=== PATIENT | female | born 1970 | race Caucasian/White ===

== ENCOUNTER → 2017-09-19 07:07 | Outpatient (CLI) | payer BC, SELFPAY ==
[2017-09-19 07:23] LABS: Basophils % 0.7 % (0.1-2.0); Eosinophils # 0.1 K/mm3 (0.0-0.4); Eosinophils % 1.1 % (0.1-12.0); Hemoglobin 12.9 g/dL (12.2-16.2); Lymphocytes # 1.5 K/mm3 (0.7-4.5); Lymphocytes % 28.6 K/mm3 (10-50); Mean Corpuscular Hemoglobin 30.7 pg (27.0-31.2); Mean Corpuscular Volume 90.4 fl (81-99); Monocytes # 0.3 K/mm3 (0.1-1.0); Monocytes % 5.1 % (1.7-9.3); Neutrophils # 3.4 K/mm3 (1.8-7.8); Neutrophils % 64.6 % (37.0-80.0); Platelet Count 167 K/mm3 (142-424); Red Blood Count 4.21 M/mm3 (4.20-5.40); Red Cell Distribution Width 13.2 % (11.5-17.5); White Blood Count 5.2 K/mm3 (4.8-10.8)
--- NOTE | 2017-09-19 07:54 | MR_ITS ---
MR head/brain wo/w con HISTORY: Recurring constant headache with dizziness ITS.REASON: Headache ORDERING PHYSICIAN: Cameron Lugo PATIENT AGE: 47 years TECHNIQUE: Standard multiplanar multiecho sequences are performed without and with gadolinium enhancement contrast. FINDINGS: No midline shift, mass effect, intracranial hemorrhage, or hydrocephalus. No evidence of acute infarction. No enhancing lesions evident. The cerebellopontine angle, cerebellum, and brainstem are unremarkable. There is normal hodge-white matter differentiation there is a small subcortical T2 white matter hyperintensity in the left posterior frontal lobe as well as 2 foci in the right posterior frontal lobe within the subcortical white matter. These are nonspecific and do not demonstrate restricted diffusion or enhancement. The hippocampal gyri are unremarkable in the temporal horn and are symmetric. The pituitary optic chiasm and craniocervical junction have an unremarkable appearance. No sinus air-fluid level or mastoid effusion. IMPRESSION: 1. No acute intracranial finding. 2. There are a few subcortical T2 white matter hyperintensities noted in the posterior frontal region on both sides. These are nonspecific and could be related to ischemic gliotic change from microvascular disease versus sequela from migraine headache.
[2017-09-19 09:11] LABS: Alanine Aminotransferase 21 U/L (12-78); Albumin Level 3.5 gm/dL (3.4-5.0); Albumin/Globulin Ratio 1.1 (1.1-1.8); Alkaline Phosphatase 51 U/L (46-116); Anion Gap 11.1 mEq/L (5-15); Bilirubin,Total 0.3 mg/dL (0.2-1.0); Blood Urea Nitrogen 17 mg/dL (7-18); Calcium 9.3 mg/dL (8.5-10.1); Carbon Dioxide 28 mmol/L (21.0-32.0); Chloride 107 mmol/L (98-107); Creatinine,Serum 0.87 mg/dL (0.55-1.02); Estimated Glomerular Filt Rate 70 ml/min (>60); GFR (African American) 84 ML/MIN (>60); Globulin 3.2 gm/dl (1.3-3.2); Glucose 103 mg/dL (74-106); Sodium 142 mmol/L (136-145); Thyroid Stimulating Hormone 2.19 uIU/ml (0.358-3.740); Total Protein,Serum 6.7 gm/dL (6.4-8.2)
[2017-09-19 09:27] LABS: Aspartate Amino Transferase 22 U/L (15-37); Potassium 4.1 mmoL/L (3.5-5.1)
[2017-09-21 06:20] LABS: Vitamin B12 546 pg/mL (232-1245)
== END ==
PROVIDERS: Family Provider Family Medicine; PCP Family Medicine; Visit Provider Nurse Practitioner Family
DX: R51 Headache (principal); G47.10 Hypersomnia, unspecified; R06.83 Snoring; I10 Essential (primary) hypertension; R23.4 Changes in skin texture
CPT/HCPCS: 36415; 70553; 80053; 82607; 82746; 84443; 85025; 95806

== ENCOUNTER → 2018-01-23 14:39 | Outpatient (CLI) | payer BC, SELFPAY ==
[2018-01-23 15:12] LABS: Basophils # 0.1 K/mm3 (0-0.2); Basophils % 0.7 % (0.1-2.0); Eosinophils # 0.1 K/mm3 (0.0-0.4); Eosinophils % 0.8 % (0.1-12.0); Hemoglobin 13.7 g/dL (12.2-16.2); Lymphocytes # 1.5 K/mm3 (0.7-4.5); Lymphocytes % 21.4 K/mm3 (10-50); Mean Corpuscular HGB Conc 33.5 g/dL (31.8-35.4); Mean Corpuscular Volume 89.4 fl (81-99); Mean Platelet Volume 7.5 fl (7.4-10.4); Monocytes # 0.4 K/mm3 (0.1-1.0); Monocytes % 5.5 % (1.7-9.3); Neutrophils # 5.2 K/mm3 (1.8-7.8); Neutrophils % 71.6 % (37.0-80.0); Platelet Count 222 K/mm3 (142-424); Red Blood Count 4.58 M/mm3 (4.20-5.40); Red Cell Distribution Width 13.3 % (11.5-17.5); White Blood Count 7.2 K/mm3 (4.8-10.8)
[2018-01-23 15:13] LABS: Urine Pregnancy, HCG Qual. Negative (Negative)
== END ==
PROVIDERS: PCP Family Medicine; Visit Provider Otolaryngology
DX: Z01.818 Encounter for other preprocedural examination (principal); J32.0 Chronic maxillary sinusitis; J34.2 Deviated nasal septum
CPT/HCPCS: 36415; 81025; 85025; 93005

== ENCOUNTER → 2019-06-17 20:10 | Outpatient (CLI) | payer BC, SELFPAY | PROVIDERS: PCP Family Medicine; Visit Provider Nurse Practitioner Family | DX: G47.8 Other sleep disorders (principal); G47.00 Insomnia, unspecified; R51 Headache; I10 Essential (primary) hypertension; R06.83 Snoring | CPT/HCPCS: 95810 ==

== ENCOUNTER → 2019-09-25 11:26 | Outpatient (CLI) | payer BC, SELFPAY ==
--- NOTE | 2019-09-25 11:30 | XR_ITS ---
PROCEDURE: XR KNEE LT 3V CLINICAL INDICATION: LT KNEE PAIN COMPARISON: No exams were available for comparison FINDINGS: No fracture or dislocation. No lytic or blastic change. There is normal mineralization. Joint spaces are well preserved. There is minimal spurring along the posterior patella. Other findings:None. IMPRESSION: Minimal spurring along the posterior patella suggesting minimal osteoarthritic change otherwise negative Dictated by: Frank Camargo MD 09/25/2019 12:03 Electronically signed by Frank Camargo MD in [facility] 09/25/2019 12:03
--- NOTE | 2019-09-25 11:30 | XR_ITS ---
PROCEDURE: XR KNEE RT 3V CLINICAL INDICATION: RT KNEE PAIN COMPARISON: No exams were available for comparison FINDINGS: No fracture or dislocation. No lytic or blastic change. There is normal mineralization. There are minimal osteoarthritic changes with slight decrease in the joint space medially and minimal osteophytes along posterior patella. Other findings:None. IMPRESSION: Minimal osteoarthritic change otherwise negative Dictated by: Frank Camargo MD 09/25/2019 12:02 Electronically signed by Frank Camargo MD in [facility] 09/25/2019 12:02
== END ==
PROVIDERS: PCP Family Medicine; Visit Provider Family Medicine
DX: M25.562 Pain in left knee (principal); M25.561 Pain in right knee
CPT/HCPCS: 73562

== ENCOUNTER 2020-07-25 04:00 | Emergency (ER) | payer BC, SELFPAY ==
[2020-07-25 04:01] VITALS: BP 133/57; PULSE 67; RESP 14; TEMP 36.6; O2SAT 98; BMI 35.3
--- NOTE | 2020-07-25 04:20 | CT_ITS ---
PROCEDURE: CT ABDOMEN PELVIS W CON CLINICAL INDICATION: abd pain Lower abdominal pain, mid abdominal pain with nausea and vomiting COMPARISON: No exams were available for comparison TECHNIQUE: IV Contrast: 75ML Isovue 370 Oral Contrast None Axial images obtained with sagittal and coronal reformats. All CT scans at the facility use one or more dose reduction, viz: automated exposure control, ma/kV adjustment per patient size (including targeted exams where dose is matched to indication, i.e. head), or iterative reconstruction technique. FINDINGS: LOWER THORAX: No acute finding ABDOMEN & PELVIS: The liver, spleen, adrenal glands, and pancreas have an unremarkable appearance. There may be a small gallstone present There is mild right hydronephrosis and hydroureter secondary to a 4 mm right ureteral vesicle junction stone. Numerous pelvic phleboliths are present. Small amount of fluid is present along the inferior aspect of the right kidney. No intestinal obstruction or free air. The no evidence of appendicitis or diverticulitis. No acute bony findings. IMPRESSION: 4 mm right distal ureteral stone with mild right hydroureteronephrosis Possible cholelithiasis Dictated by: Frank Camargo MD 07/25/2020 06:46 Frank Camargo MD in [facility] 07/25/2020 06:46
[2020-07-25 04:27] LABS: Microscopic, Urine URINE MICROSCOPIC (MICROSCOPIC)
[2020-07-25 04:28] LABS: Appearance,Urine CLEAR (Clear); Bilirubin,Urine Negative (Negative); Blood, Urine 2+ (Negative); Color,Urine YELLOW (Yellow); Glucose,Urine (UA) Negative (Negative); Ketones,Urine Negative (Negative); Leukocyte Esterase,Urine Negative (Negative); Nitrate,Urine Negative (Negative); PH,Urine 7.5 (5.0-8.5); Protein,Urine Negative (Negative); Urobilinogen,Urine 0.2 EU/dl (0.2)
[2020-07-25 04:29] LABS: Basophils % 0.4 % (0.1-2.0); Eosinophils % 0.3 % (0.1-12.0); Hemoglobin 13.8 g/dL (12.2-16.2); Lymphocytes # 1.1 K/mm3 (0.7-4.5); Lymphocytes % 10.7 % (10-50); Mean Corpuscular HGB Conc 32.9 g/dL (31.8-35.4); Mean Corpuscular Hemoglobin 29.2 pg (27.0-31.2); Mean Corpuscular Volume 88.7 fl (81-99); Mean Platelet Volume 7.8 fl (7.4-10.4); Monocytes # 0.4 K/mm3 (0.1-1.0); Monocytes % 3.7 % (1.7-9.3); Neutrophils # 8.4 K/mm3 (1.8-7.8); Neutrophils % 84.9 % (37.0-80.0); Platelet Count 230 K/mm3 (142-424); Red Blood Count 4.74 M/mm3 (4.20-5.40); Red Cell Distribution Width 13.8 % (11.5-17.5)
[2020-07-25 04:36] LABS: Alanine Aminotransferase 42 U/L (12-78); Albumin Level 4.7 g/dl (3.5-5.0); Albumin/Globulin Ratio 1.4 (1.1-1.8); Alkaline Phosphatase 104 U/L (38-126); Amylase 84 U/L (30-110); Anion Gap 11.8 mEq/L (5-15); Aspartate Amino Transferase 41 U/L (14-36); Bilirubin,Total 0.4 mg/dl (0.2-1.3); Blood Urea Nitrogen 32 mg/dl (7-17); Calcium 10.1 mg/dl (8.4-10.2); Carbon Dioxide 29 mmol/L (22.0-30.0); Chloride 103 mmol/L (98-107); Creatinine Clearance Estimated 117 mL/min (50-200); Estimated Glomerular Filt Rate 66 ml/min (>60); GFR (African American) 80 ML/MIN (>60); Globulin 3.4 g/dL (1.3-3.2); Glucose 143 mg/dl (74-100); Lipase 137 U/L (23-300); Potassium 3.8 mmoL/L (3.5-5.1); Sodium 140 mmol/L (136-145); Total Protein,Serum 8.1 g/dl (6.3-8.2)
[2020-07-25 04:41] LABS: C-Reactive Protein 1.3 mg/L (0-4)
[2020-07-25 04:51] LABS: Lactic Acid 0.9 mmol/L (0.7-2.1)
[2020-07-25 04:57] LABS: Procalcitonin 0.076 ng/mL (0.0-2.0)
[2020-07-25 05:01] LABS: Troponin I < 0.01 ng/ml (0.00-0.034)
[2020-07-25 05:04] LABS: Erythrocyte Sedimentation Rate 25 mm/hr (0-20)
--- NOTE | 2020-07-25 05:26 | ECG_ITS ---
APPROVED REPORT Exam: Resting ECG HR:53 bpm ECG Measurements Heart Rate 53 AXES MD 160 P 61 QRSd 94 QRS 56 QT 424 T 48 QTc 397 Conclusion Sinus bradycardia Left atrial abnormality Borderline ECG Electronically signed by : Ramone Slade, 07/25/2020 16:29:06
[2020-07-25 05:30] VITALS: BP 123/57; PULSE 56; RESP 17; O2SAT 99
--- NOTE | 2020-07-25 05:34 | HMH.EDNVD ---
ED Disposition Clinical Impression: Renal colic on right side Disposition: Home, Self-Care Condition on Discharge: Good Instructions: DI for Kidney Stones Additional Instructions: fluids and see pcp for follow up and urology Referrals: Virgilio Schmidt MD [Primary Care Provider] - Medardo Ramirez MD [Staff Physician] - Forms: Work/School Release - Critical Care Critical Care Time: No Attestation: On 07/25/20, the high probability of a clinically significant, sudden or life threatening deterioration of the following system(s) required my full and direct attention, intervention and personal management. The time I documented below is in addition to time spent performing reported procedures but includes the following listed in this critical care notation. Medical Decision Making - Medical Records Medical records reviewed: Yes: I reviewed the patient's medical records. - Jamie Inquiry Pt receiving controlled substance: No Vital Signs: 07/25/20 04:01 07/25/20 05:30 07/25/20 06:18 Temperature 97.9 F Temperature Source Oral Pulse Rate [Right] 67 56 L 82 Respiratory Rate 14 17 15 Blood Pressure [Right Arm] 133/57 L 123/57 L 117/53 L Blood Pressure Mean [Right Arm] 82 79 74 Blood Pressure Source [Right Arm] Automatic Cuff Blood Pressure Position [Right Arm] Supine 02 Sat by Pulse Oximetry 98 99 97 Oxygen Delivery Method Room Air Room Air 07/25/20 06:30 Temperature Temperature Source Pulse Rate [Right] 64 Respiratory Rate Blood Pressure [Right Arm] 111/61 Blood Pressure Mean [Right Arm] 77 Blood Pressure Source [Right Arm] Blood Pressure Position [Right Arm] 02 Sat by Pulse Oximetry 97 Oxygen Delivery Method - Lab Data Lab results reviewed: Yes: I reviewed the patient's lab results. Lab Results 07/25/20 04:10: Urine Color Yellow, Urine Appearance Clear, Urine pH 7.5, Ur Specific [place] 1.020, Urine Protein Negative, Urine Glucose (UA) Negative, Urine Ketones Negative, Urine Blood 2+, Urine Nitrate Negative, Urine Bilirubin Negative, Urine Urobilinogen 0.2, Ur Leukocyte Esterase Negative, Urine RBC 5-10, Ur Squamous Epith Cells 3-5 07/25/20 04:13: Lactate 0.9 07/25/20 04:14: WBC 10.0, RBC 4.74, Hgb 13.8, Hct 42.0, MCV 88.7, MCH 29.2, MCHC 32.9, RDW 13.8, Plt Count 230, MPV 7.8, Neut % (Auto) 84.9 H, Lymph % (Auto) 10.7, [place] % (Auto) 3.7, Eos % (Auto) 0.3, Baso % (Auto) 0.4, Neut # (Auto) 8.4 H, Lymph # (Auto) 1.1, [place] # (Auto) 0.4, Eos # (Auto) 0.0, Baso # (Auto) 0.0, ESR 25 H 07/25/20 04:14: Sodium 140, Potassium 3.8, Chloride 103, Carbon Dioxide 29, Anion Gap 11.8, BUN 32 H, Creatinine 0.90, Estimated Creat Clear 117, Estimated GFR 66, Est GFR ( Amer) 80, Glucose 143 H, Calcium 10.1, Total Bilirubin 0.4, AST 41 H, ALT 42, Alkaline Phosphatase 104, C-Reactive Protein 1.3, Total Protein 8.1, Albumin 4.7, Globulin 3.4 H, Albumin/Globulin Ratio 1.4, Amylase 84, Lipase 137, Procalcitonin 0.076 07/25/20 04:14: Troponin I < 0.01 Result diagrams: 07/25/20 04:14 07/25/20 04:14 Orders (Tests/Meds): ED MEDICATIONS Generic Name Dose Route Start Last Admin Trade Name Freq PRN Reason Stop Dose Admin Sodium Chloride 1,000 mls @ 999 mls/hr 07/25/20 04:30 07/25/20 04:23 Sod Chlor 0.9% 1000ml Bag IV 07/25/20 05:30 999 mls/hr .Q1H1M JOHN Administration Sodium Chloride 8 ml 07/25/20 04:21 Sodium Chloride 0.9% 10ml Vial IV 08/24/20 04:20 NEEDED PRN dilute pepcid Tamsulosin HCl 0.4 mg 07/25/20 21:00 07/25/20 06:13 Tamsulosin 0.4mg Capsule PO 08/24/20 20:59 0.4 mg HS JOHN Administration Discontinued Medications Generic Name Dose Route Start Last Admin Trade Name Freq PRN Reason Stop Dose Admin Famotidine 20 mg 07/25/20 04:21 07/25/20 04:22 Famotidine 20mg/2ml Vial IV 07/25/20 04:22 20 mg ONCE ONE Administration Iopamidol 75 ml 07/25/20 05:06 07/25/20 05:07 Iopamidol-370 (76%);100ml Bottle IV 07/25/20 05:07 75 ml ONCE ONE
[2020-07-25 06:18] VITALS: BP 117/53; PULSE 82; RESP 15; O2SAT 97
[2020-07-25 06:30] VITALS: BP 111/61; PULSE 64; O2SAT 97
[2020-07-25 06:52] VITALS: BP 111/61; PULSE 61; RESP 16; TEMP 36.6; O2SAT 98
== END 2020-07-25 06:58 | disposition home or self-care (01) ==
PROVIDERS: Emergency Provider Emergency Medicine; PCP Family Medicine
DX: N23 Unspecified renal colic (principal); I10 Essential (primary) hypertension; F41.9 Anxiety disorder, unspecified; Z79.899 Other long term (current) drug therapy
CPT/HCPCS: 74177; 80053; 81001; 82150; 83605; 83690; 84145; 84484; 85025; 85651; 86140; 87040; 93005; 96365; 96375; 99284; J2405; Q9967

== ENCOUNTER → 2020-07-31 15:39 | Outpatient (CLI) | payer BC, SELFPAY ==
--- NOTE | 2020-07-31 15:44 | XR_ITS ---
PROCEDURE: XR KUB CLINICAL INDICATION: kidney stone COMPARISON: CT CT ABDOMEN PELVIS W CON from 07/25/2020 FINDINGS: Gas pattern-The bowel gas pattern is unremarkable. No obvious obstruction. Calcifications-No abnormal calcifications are evident. No obvious renal or ureteral calculi. Bones-No acute bony anomalies evident. IMPRESSION: No acute findings. Dictated by: Frank Camargo MD 07/31/2020 16:14 Frank Camargo MD in [place] 07/31/2020 16:14
== END ==
PROVIDERS: PCP Family Medicine; Visit Provider Urology
DX: N20.0 Calculus of kidney (principal)
CPT/HCPCS: 74018

== ENCOUNTER → 2020-08-25 13:52 | Outpatient (CLI) | payer BC, SELFPAY ==
--- NOTE | 2020-08-25 13:55 | XR_ITS ---
PROCEDURE: XR KUB CLINICAL INDICATION: ureteral stone COMPARISON: CT CT ABDOMEN PELVIS W CON from 07/25/2020 FINDINGS: No obvious renal or ureteral calculi evident. There are multiple pelvic calcifications consistent with phleboliths. Bowel gas pattern is nonspecific. No acute bony findings. IMPRESSION: No acute findings. Dictated by: Frank Camargo MD 08/25/2020 14:28 Frank Camargo MD in [facility] 08/25/2020 14:28
== END ==
PROVIDERS: PCP Family Medicine; Visit Provider Urology
DX: N20.1 Calculus of ureter (principal)
CPT/HCPCS: 74018

== ENCOUNTER → 2020-10-14 08:49 | Outpatient (CLI) | payer BC, SELFPAY ==
--- NOTE | 2020-10-14 08:51 | MM_ITS ---
PROCEDURE INFORMATION: Exam: MG Screening 3D Mammography Exam date and time: 10/14/2020 8:51 AM Age: 50 years old Clinical indication: Screening mammogram TECHNIQUE: Imaging protocol: Screening tomosynthesis and 2D mammography including computer-aided detection (CAD) when performed. COMPARISON: MG MM MOBILE DIGITAL MARGO SCREEN BILAT 07/03/2018 2:10 PM FINDINGS: MAMMOGRAPHY: Breast composition: The breast tissue is heterogeneously dense, which may obscure small masses. Mass: None. Architectural distortion: No new or suspicious architectural distortion. Calcifications: No new or suspicious calcifications are present Asymmetric density: No new or suspicious asymmetric density is present Skin thickening: None. Axillary adenopathy: None. IMPRESSION: No mammographic evidence of malignancy. Recommend annual screening mammography unless otherwise clinically indicated. ASSESSMENT: BI-RADS category 1: Negative
== END ==
PROVIDERS: PCP Family Medicine; Visit Provider Family Medicine
DX: Z12.31 Encounter for screening mammogram for malignant neoplasm of breast (principal)
CPT/HCPCS: 77063; 77067

== ENCOUNTER → 2020-11-03 10:35 | Outpatient (CLI) | payer BC, SELFPAY | PROVIDERS: Visit Provider Surgery | DX: Z01.812 Encounter for preprocedural laboratory examination (principal); Z20.822 Contact with and (suspected) exposure to COVID-19; Z12.11 Encounter for screening for malignant neoplasm of colon | CPT/HCPCS: U0003 ==

== ENCOUNTER 2020-11-05 06:17 | Day surgery (SDC) | payer BC, SELFPAY ==
[2020-11-02 13:16] VITALS: BMI 36.8
[2020-11-05] VITALS (8 sets, daily range): BP systolic 97–131; BP diastolic 55–81; PULSE 48–58; RESP 18; TEMP 36.2–36.4; O2SAT 95–100
--- NOTE | 2020-11-05 06:56 | HMH.ANESCL ---
[facility] Anesthesia Checklist - Patient Identification Patient Identification: Arm Band - Structural Data Admitted From: Home Planned Operative Procedure/s: Colonoscopy Consent for Planned Operative Procedure(s) Verified: Yes - NPO Status Verified Time NPO: 04:10 (Prep) - Additional verifications Anesthesia Reactions: No Hx Blood Transfusions: No Blood Transfusion Reaction: No - Airway Assessment C-Spine Mobility Assessed: Yes TMJ Mobility Assessed: Yes Dentition: Good Dentition - Neurological Assessment Level of Consciousness: Awake, Restless Hx Seizures: No Numbness or tingling in extremities: No - Anesthesia Plan Anesthesia Risk discussed: Yes Anesthesia Plan: Verified ASA Class: II Anesthesia Type: MAC [facility] History Medical History: Reports:: Anxiety, Hypertension, Migraine Denies:: Cancer, Diabetes Mellitus Type 1, Diabetes Mellitus Type 2, Internal Pacemaker, MRSA, Seizures *Have you ever received a pneumonia vaccine?: No *Have you received a flu vaccine this season?: No Other Medical History: Reports: Arthritis, Sinus Problems. Denies: Blood Transfusion Reaction Anesthesia experience/problems:: None Other Surgeries: Yes: No Previous Surgery, Colonoscopy, Sinus Surgery, Other. No: Pacemaker Amputation: No Fractures: No - *Social History Last grade of school completed: High school graduate Smoking Status: Never smoker Alcohol Intake: never Alcohol Intake Frequency:: other Substance Use Type: denies use *Occupational Status:: employed Housing: house Household Members: spouse *Travel in the last 8 weeks: None - Psychiatric History Pschychiatric History:: Reports:: Anxiety Family Hx:: Cancer
--- NOTE | 2020-11-05 07:59 | HMH.SCOPE ---
- Procedure: Date: 11/05/20 Patient Date of :: 1970 Procedure Performed:: Colonoscopy with polypectomy by means other than snare Indications:: Screening Performing Provider:: Elder Das MD Referring Provider:: . Sedation:: Monitored anesthesia care Procedure:: After informed consent was obtained the patient was taken to the endoscopy suite. Sedation ensued after the patient was transferred to the left lateral decubitus position. Pulse, blood pressure, and oxygen saturation were monitored throughout the procedure. Digital rectal exam revealed no significant abnormality. The colonoscope was placed in position. The entire colon was evaluated. The colonoscope was carefully removed and the patient was transferred to recovery in stable condition. Please see findings and specimens below for detail. Findings:: Bowel preparation fair Hemorrhoidal tags Moderate spasticity and tortuosity 6 mm lobulated cecal polyp Specimens:: 6 mm lobulated cecal polyp Recommendations:: Timing of repeat colonoscopy is pending pathology but will likely be between 3-5 years. Complications:: No immediate Estimated blood obtained (mL): 1
== END 2020-11-05 08:52 | disposition home or self-care (01) ==
LOC: OUTP 06:18
PROVIDERS: PCP Family Medicine; Visit Provider Surgery
PROC: 0DJD8ZZ Inspection of Lower Intestinal Tract, Via Natural or Artificial Opening Endoscopic (ICD-10-PCS; CPT 45380; principal; 2020-11-05 07:30)
DX: Z12.11 Encounter for screening for malignant neoplasm of colon (principal); K64.9 Unspecified hemorrhoids; K63.5 Polyp of colon; K56.2 Volvulus; I10 Essential (primary) hypertension; G43.909 Migraine, unspecified, not intractable, without status migrainosus; F41.9 Anxiety disorder, unspecified; M19.90 Unspecified osteoarthritis, unspecified site; Z80.9 Family history of malignant neoplasm, unspecified; Z79.899 Other long term (current) drug therapy
CPT/HCPCS: 45380

== ENCOUNTER → 2021-07-12 10:32 | Outpatient (CLI) | payer BC, SELFPAY ==
--- NOTE | 2021-07-12 10:47 | XR_ITS ---
FINAL REPORT CLINICAL HISTORY: PAIN IN LEFT FOOT FINDINGS: LEFT FOOT: Three views of the left foot were obtained. There is no acute fracture or dislocation. There is mild degenerative change. There are small calcaneal spurs. There is no acute soft tissue abnormality. IMPRESSION: No acute bony abnormality. Reviewed, Interpreted and Dictated by Anjel Li III, MD Transcribed by SHREYAS Godfrey Authenticated by Anjel Li III, MD on 07/12/2021 11:54:54 AM [facility]
--- NOTE | 2021-07-12 10:47 | XR_ITS ---
FINAL REPORT CLINICAL HISTORY: PAIN IN RIGHT FOOT FINDINGS: RIGHT FOOT: Three views of the right foot were obtained. There is no acute fracture or dislocation. There is mild degenerative change. There are small calcaneal spurs. There is no acute soft tissue abnormality. IMPRESSION: No acute bony abnormality. Reviewed, Interpreted and Dictated by Anjel Li III, MD Transcribed by SHREYAS Godfrey Authenticated by Anjel Li III, MD on 07/12/2021 12:12:56 PM [facility]
== END ==
PROVIDERS: PCP Family Medicine; Visit Provider Family Medicine
DX: M79.672 Pain in left foot (principal); M79.671 Pain in right foot
CPT/HCPCS: 73630

== ENCOUNTER → 2021-11-16 14:59 | Outpatient (CLI) | payer BC, SELFPAY ==
--- NOTE | 2021-11-16 14:59 | MM_ITS ---
PROCEDURE INFORMATION: Exam: MG Bilateral Screening 3D Mammography Exam date and time: 11/16/2021 3:01 PM Age: 51 years old Clinical indication: Screening examination TECHNIQUE: Imaging protocol: Bilateral Screening tomosynthesis and 2D mammography including computer-aided detection (CAD) when performed. COMPARISON: 1. MG MM DIG SCREENING MAMM BI W/CAD 10/14/2020 8:58 AM 2. MG MM MOBILE DIGITAL MARGO SCREEN BILAT 07/03/2018 2:10 PM FINDINGS: MAMMOGRAPHY: Breast composition: There are scattered areas of fibroglandular density. Mass: None. Architectural distortion: None. Calcifications: Cluster calcifications in the posterior third of the right 9 o'clock axis may reflect benign calcium within the wall of a small oil cyst. Asymmetric density: None. Skin thickening: None. Axillary adenopathy: None. IMPRESSION: Patient to be recalled for spot magnification views of the right breast in the CC and MLO projections for further evaluation of right breast calcifications. ASSESSMENT: BI-RADS Category 0: Incomplete- Need Additional Imaging Evaluation and/or Prior Mammograms for Comparison
== END ==
PROVIDERS: PCP Family Medicine; Visit Provider Family Medicine
DX: Z12.31 Encounter for screening mammogram for malignant neoplasm of breast (principal)
CPT/HCPCS: 77063; 77067

== ENCOUNTER → 2021-12-01 13:20 | Outpatient (CLI) | payer BC, SELFPAY ==
--- NOTE | 2021-12-01 13:20 | MM_ITS ---
PROCEDURE INFORMATION: Exam: MG Right Diagnostic Breast Tomosynthesis Exam date and time: 12/01/2021 1:16 PM Age: 51 years old Clinical indication: Callback for additional assessment of calcifications in the posterior right 9 o'clock breast identified on screening mammogram 11/16/2021 the TECHNIQUE: Imaging protocol: Right Diagnostic tomosynthesis and 2D mammography including computer-aided detection (CAD) when performed. Unilateral or bilateral exam. COMPARISON: 1. MG MM DIG SCREENING MAMM BI W/CAD 11/16/2021 3:01 PM 2. MG MM DIG SCREENING MAMM BI W/CAD 10/14/2020 8:58 AM 3. MG MM MOBILE DIGITAL MARGO SCREEN BILAT 07/03/2018 2:10 PM FINDINGS: MAMMOGRAPHY: There is a new cluster of calcifications spanning approximately 4 mm in the upper outer posterior right breast. Morphologically, these have features suggestive of developing fat necrosis or possibly highly meeting fibroadenoma. No morphologically suspicious linear or branching forms have developed. No associated architectural distortion or mass is present. IMPRESSION: Probably benign. Short-term follow-up right diagnostic mammogram in 6 months is recommended to assure continued benign features of a cluster of calcifications in the right upper outer posterior breast. These currently demonstrate features highly suggestive of a benign etiology such as fat necrosis ASSESSMENT: BI-RADS category 3: Probably benign
== END ==
PROVIDERS: PCP Family Medicine; Visit Provider Nurse Practitioner
DX: R92.8 Other abnormal and inconclusive findings on diagnostic imaging of breast (principal)
CPT/HCPCS: 77061; 77065; G0279

== ENCOUNTER → 2022-01-05 06:39 | Outpatient (CLI) | payer BC, SELFPAY ==
[2022-01-05 21:04] LABS: Adenovirus,PCR Not Detected (NotDetected); Bordetella Pertussis Not Detected (NotDetected); Coronavirus 229E Not Detected (NotDetected); Coronavirus NL63 Not Detected (NotDetected); Coronavirus OC43 Not Detected (NotDetected); Coronovirus HKU1,PCR Not Detected (NotDetected); Human Metapneumovirus Not Detected (NotDetected); Influenza A, PCR Not Detected (NotDetected); Influenza AH1, 2009 Not Detected (NotDetected); Influenza AH1, PCR Not Detected (NotDetected); Influenza AH3,PCR Not Detected (NotDetected); Influenza B, PCR Not Detected (NotDetected); Parainfluenza 1, PCR Not Detected (NotDetected); Parainfluenza 2, PCR Not Detected (NotDetected); Parainfluenza 3, PCR Not Detected (NotDetected); Parainfluenza 4, PCR Not Detected (NotDetected); Respiratory Syncytial Virus Not Detected (NotDetected); Rhinovirus/Enterovirus Not Detected (NotDetected)
[2022-01-05 23:22] LABS: Chlamydophila Pneumoniae, PCR Not Detected (NotDetected); Mycoplasma Pneumoniae, PCR Not Detected (NotDetected)
[2022-01-05 23:23] LABS: Coronavirus 19, PCR Detected (NotDetected)
== END ==
PROVIDERS: PCP Family Medicine; Visit Provider Family Medicine
DX: U07.1 COVID-19 (principal); J06.9 Acute upper respiratory infection, unspecified
CPT/HCPCS: 87581; 87632; 87798; C9803; U0003; U0005

== ENCOUNTER → 2022-05-25 15:44 | Outpatient (CLI) | payer BC, SELFPAY ==
--- NOTE | 2022-05-25 15:51 | XR_ITS ---
FINAL REPORT CLINICAL HISTORY: cough x2 months FINDINGS: TWO-VIEW CHEST The heart size is normal. The mediastinum is normal. There is a right upper lobe opacity consistent with pneumonia. There is no pneumothorax. IMPRESSION: Right upper lobe pneumonia. Reviewed, Interpreted and Dictated by Anjel Li III, MD Transcribed by Miriam Martinez Authenticated and [facility]
[2022-05-25 19:38] LABS: Basophils # 0.1 K/mm3 (0-0.2); Basophils % 0.7 % (0.1-2.0); Eosinophils # 0.1 K/mm3 (0.0-0.4); Eosinophils % 1.2 % (0.1-12.0); Hematocrit 35.8 % (37.0-47.0); Hemoglobin 11.4 g/dL (12.2-16.2); Lymphocytes # 1.6 K/mm3 (0.7-4.5); Lymphocytes % 19.8 % (10-50); Mean Corpuscular Hemoglobin 28.5 pg (27.0-31.2); Mean Corpuscular Volume 89.1 fl (81-99); Mean Platelet Volume 8.9 fl (7.4-10.4); Monocytes # 0.4 K/mm3 (0.1-1.0); Monocytes % 5.3 % (1.7-9.3); Neutrophils # 6.1 K/mm3 (1.8-7.8); Platelet Count 368 K/mm3 (142-424); Red Blood Count 4.02 M/mm3 (4.20-5.40); Red Cell Distribution Width 14.1 % (11.5-17.5); White Blood Count 8.3 K/mm3 (4.8-10.8)
[2022-05-25 19:51] LABS: Anion Gap 12.1 mEq/L (5-15); Blood Urea Nitrogen 24 mg/dl (7-17); Calcium 9.2 mg/dl (8.4-10.2); Carbon Dioxide 26 mmol/L (22.0-30.0); Chloride 105 mmol/L (98-107); Chol/HDL Ratio 4.6 (1-3.5); Cholesterol 172 mg/dl (140-200); Estimated Glomerular Filt Rate 75 ml/min (>60); GFR (African American) 91 ML/MIN (>60); Glucose 89 mg/dl (74-100); HDL Cholesterol 37 mg/dl (40-60); Potassium 4.1 mmoL/L (3.5-5.1); Sodium 139 mmol/L (136-145); Triglycerides 98 mg/dl (30-150); VLDL Cholesterol 20 mg/dL (0-40)
[2022-05-25 20:00] LABS: Hemoglobin A1C 5.4 % (4.0-6.0)
[2022-05-25 20:01] LABS: Direct LDL Cholesterol 97.88 mg/dL (100-129)
[2022-05-25 20:18] LABS: Creatinine,Urine Random 122 mg/dL (Not Estab.)
[2022-05-25 20:31] LABS: Microalbumin < 6.000 mg/L (0-16.7)
== END ==
PROVIDERS: PCP Family Medicine; Visit Provider Family Medicine
DX: R05.9 Cough, unspecified (principal); I10 Essential (primary) hypertension; R73.01 Impaired fasting glucose
CPT/HCPCS: 71046; 80048; 80061; 82043; 82570; 83036; 85025

== ENCOUNTER → 2022-06-07 13:44 | Outpatient (CLI) | payer BC, SELFPAY ==
--- NOTE | 2022-06-07 13:48 | MM_ITS ---
PROCEDURE INFORMATION: Exam: MG Right Diagnostic Breast Tomosynthesis Exam date and time: 06/07/2022 1:55 PM Age: 52 years old Clinical indication: Short-term radiographic follow-up for right breast calcifications TECHNIQUE: Imaging protocol: Right Diagnostic tomosynthesis and 2D mammography including computer-aided detection (CAD) when performed. Unilateral or bilateral exam. COMPARISON: 1. MG MM DIG MAMM DX UNILAT RT CAD 12/01/2021 1:16 PM 2. MG MM DIG SCREENING MAMM BI W/CAD 11/16/2021 3:01 PM FINDINGS: MAMMOGRAPHY: The breast tissue is composed of scattered areas of fibroglandular density. There is no stellate mass, architectural distortion or suspicious microcalcifications to suggest malignancy. Magnification views of the posterior right breast demonstrate benign dystrophic calcifications. No skin thickening or axillary adenopathy. IMPRESSION: No mammographic evidence of malignancy. Benign calcifications in the right breast.Annual bilateral mammographic screening is recommended in 6 months unless otherwise clinically indicated. ASSESSMENT: BI-RADS Category 2: Benign
--- NOTE | 2022-06-07 13:48 | XR_ITS ---
FINAL REPORT CLINICAL HISTORY: Follow-up pneumonia. COMPARISON: 05/25/2022 FINDINGS: TWO-VIEW CHEST Two views of the chest were obtained. The heart size and pulmonary vascularity are within normal limits. The mediastinum is normal. Previously visualized opacities in the right upper lobe have resolved. There is no pneumothorax. The bony thorax is intact. IMPRESSION: Resolved right upper lobe density, no acute findings. Reviewed, Interpreted and Dictated by Dallin Pereira MD Transcribed by Shilpa Sanchez Authenticated and [facility]
== END ==
PROVIDERS: PCP Family Medicine; Visit Provider Nurse Practitioner
DX: R93.89 Abnormal findings on diagnostic imaging of other specified body structures (principal)
CPT/HCPCS: 71046; 77061; 77065; G0279

== ENCOUNTER → 2022-12-06 09:42 | Outpatient (CLI) | payer BC, SELFPAY ==
--- NOTE | 2022-12-06 09:42 | MM_ITS ---
PROCEDURE INFORMATION: Exam: MG Bilateral Screening 3D Mammography Exam date and time: 12/06/2022 9:58 AM Age: 52 years old Clinical indication: Screening examination; Family history of breast cancer in grandmother TECHNIQUE: Imaging protocol: Bilateral Screening tomosynthesis and 2D mammography including computer-aided detection (CAD) when performed. COMPARISON: 1. MG MM DIG MAMM DX UNILAT RT CAD 06/07/2022 1:55 PM 2. MG MM DIG MAMM DX UNILAT RT CAD 12/01/2021 1:16 PM FINDINGS: MAMMOGRAPHY: Breast composition: There are scattered areas of fibroglandular density. Mass: None. Architectural distortion: None. Calcifications: No suspicious calcifications. Asymmetric density: None. Skin thickening: None. Axillary adenopathy: None. IMPRESSION: No mammographic evidence of malignancy. Annual screening is recommended unless otherwise clinically indicated. ASSESSMENT: BI-RADS Category 1: Negative
== END ==
PROVIDERS: PCP Family Medicine; Visit Provider Nurse Practitioner
DX: Z12.31 Encounter for screening mammogram for malignant neoplasm of breast (principal)
CPT/HCPCS: 77063; 77067

== ENCOUNTER → 2023-02-14 23:45 | Outpatient (CLI) | payer BC, SELFPAY ==
[2023-02-14 19:36] LABS: Alanine Aminotransferase 45 U/L (12-78); Albumin Level 4.5 g/dl (3.5-5.0); Albumin/Globulin Ratio 1.3 (1.1-1.8); Alkaline Phosphatase 145 U/L (38-126); Anion Gap 13.1 mEq/L (5-15); Aspartate Amino Transferase 44 U/L (14-36); Bilirubin,Total 0.4 mg/dl (0.2-1.3); Blood Urea Nitrogen 28 mg/dl (7-17); Calcium 9.5 mg/dl (8.4-10.2); Carbon Dioxide 28 mmol/L (22.0-30.0); Chloride 102 mmol/L (98-107); Estimated Glomerular Filt Rate 65 ml/min (>60); GFR (African American) 79 ML/MIN (>60); Globulin 3.6 g/dL (1.3-3.2); Glucose 101 mg/dl (74-100); Potassium 4.1 mmoL/L (3.5-5.1); Sodium 139 mmol/L (136-145); Total Protein,Serum 8.1 g/dl (6.3-8.2); Uric Acid 4.4 mg/dl (2.5-6.2)
[2023-02-14 20:23] LABS: Erythrocyte Sedimentation Rate 25 mm/hr (0-30)
== END ==
PROVIDERS: PCP Family Medicine; Visit Provider Family Medicine
DX: I10 Essential (primary) hypertension (principal); G43.909 Migraine, unspecified, not intractable, without status migrainosus; M79.673 Pain in unspecified foot
CPT/HCPCS: 80053; 84550; 85651

== ENCOUNTER → 2023-04-04 14:01 | Outpatient (CLI) | payer BC, SELFPAY ==
[2023-04-04 19:10] LABS: Uric Acid 3.8 mg/dl (2.5-6.2)
[2023-04-04 19:56] LABS: Erythrocyte Sedimentation Rate 77 mm/hr (0-30)
[2023-04-06 09:12] LABS: RA Latex Turbid. <10.0 IU/mL (<14.0)
[2023-04-10 08:17] LABS: Antinuclear Antibodies, IFA Negative (.)
[2023-04-10 21:59] LABS: Antinuclear Antibodies (ANA) NEGATIVE
== END ==
PROVIDERS: PCP Family Medicine; Visit Provider Family Medicine
DX: M79.672 Pain in left foot (principal); N20.0 Calculus of kidney
CPT/HCPCS: 84550; 85651; 86038; 86225; 86235; 86431

== ENCOUNTER 2023-11-21 11:22 | Outpatient (CLI) | payer BC, SELFPAY ==
[2023-11-21 19:05] LABS: Alanine Aminotransferase 41 U/L (12-78); Albumin Level 3.8 g/dl (3.5-5.0); Albumin/Globulin Ratio 1.4 (1.1-1.8); Alkaline Phosphatase 101 U/L (38-126); Anion Gap 8.2 mEq/L (5-15); Aspartate Amino Transferase 40 U/L (14-36); Bilirubin,Total 0.3 mg/dl (0.2-1.3); Blood Urea Nitrogen 15 mg/dl (7-17); Calcium 9.3 mg/dl (8.4-10.2); Carbon Dioxide 29 mmol/L (22.0-30.0); Chloride 108 mmol/L (98-107); Estimated Glomerular Filt Rate 75 ml/min (>60); GFR (African American) 91 ML/MIN (>60); Globulin 2.8 g/dL (1.3-3.2); Glucose 108 mg/dl (74-100); Potassium 4.2 mmoL/L (3.5-5.1); Sodium 141 mmol/L (136-145); Total Protein,Serum 6.6 g/dl (6.3-8.2)
== END 2023-11-21 23:59 | disposition home or self-care (01) ==
LOC: LAB.DROPOF 11-22 11:02
PROVIDERS: PCP Family Medicine; Visit Provider Family Medicine
DX: I10 Essential (primary) hypertension (principal)
CPT/HCPCS: 80053

== ENCOUNTER 2023-11-30 10:48 | Outpatient (CLI) | payer BC, SELFPAY ==
--- NOTE | 2023-11-30 10:49 | MM_ITS ---
PROCEDURE INFORMATION: Exam: MG Bilateral Screening 3D Mammography Exam date and time: 11/30/2023 10:33 AM Age: 53 years old Clinical indication: Screening examination TECHNIQUE: Imaging protocol: Bilateral Screening tomosynthesis and 2D mammography including computer-aided detection (CAD) when performed. COMPARISON: 1. MG MM DIG SCREENING MAMM BI W/CAD 12/06/2022 9:58 AM 2. MG MM DIG MAMM DX UNILAT RT CAD 06/07/2022 1:55 PM FINDINGS: MAMMOGRAPHY: Breast composition: There are scattered areas of fibroglandular density. Mass: None. Architectural distortion: None. Calcifications: No suspicious calcifications. Asymmetric density: None. Skin thickening: None. Axillary adenopathy: None. IMPRESSION: No mammographic evidence of malignancy. Annual screening is recommended unless otherwise clinically indicated. ASSESSMENT: BI-RADS Category 1: Negative
== END 2023-11-30 23:59 | disposition home or self-care (01) ==
LOC: RAD 10:49
PROVIDERS: PCP Family Medicine; Visit Provider Family Medicine
DX: Z12.31 Encounter for screening mammogram for malignant neoplasm of breast (principal); N60.19 Diffuse cystic mastopathy of unspecified breast
CPT/HCPCS: 77063; 77067

== ENCOUNTER 2024-01-02 16:13 | Outpatient (CLI) | payer BC, SELFPAY ==
[2024-01-02 20:00] LABS: Thyroid Stimulating Hormone 1.19 uIU/mL (0.465-4.68)
== END 2024-01-02 23:59 | disposition home or self-care (01) ==
LOC: LAB.DROPOF 01-03 16:14
PROVIDERS: PCP Family Medicine; Visit Provider Family Medicine
DX: F41.1 Generalized anxiety disorder (principal)
CPT/HCPCS: 84443

== ENCOUNTER 2024-07-30 14:30 | Outpatient (CLI) | payer BC, SELFPAY ==
[2024-07-30 21:35] LABS: Anion Gap 10.2 mEq/L (5-15); Blood Urea Nitrogen 23 mg/dl (7-17); Calcium 9.5 mg/dl (8.4-10.2); Carbon Dioxide 27 mmol/L (22.0-30.0); Chloride 104 mmol/L (98-107); Estimated Glomerular Filt Rate 87 ml/min (>60); GFR (African American) 106 ML/MIN (>60); Glucose 93 mg/dl (74-100); Potassium 4.2 mmoL/L (3.5-5.1); Sodium 137 mmol/L (136-145); Uric Acid 4.4 mg/dl (2.5-6.2)
== END 2024-07-30 23:59 | disposition home or self-care (01) ==
LOC: LAB.DROPOF 07-31 08:55
PROVIDERS: PCP Family Medicine; Visit Provider Family Medicine
DX: M79.671 Pain in right foot (principal); M79.672 Pain in left foot; I10 Essential (primary) hypertension
CPT/HCPCS: 80048; 84550

== ENCOUNTER 2024-11-26 13:00 | Outpatient (CLI) | payer BC, SELFPAY ==
--- OUTSIDE RECORDS SUMMARY | 2024-10-15 09:15 | XMS_ITS | Encounter Summary ---
Author Organization [place] [address] Care Team Providers Care Investment Accounting Clerk Name Role Phone Virgilio Schmidt MD Primary Care Provider [phone] Reason for Visit * Reason Comments Foot Pain right foot. A lot be tter. Encounter Details Date Type Department Care Team (Late st Contact Info) Description 10/15/2024 9:15 AM EDT Office Visit [facility] [place] [address] [place] [phone] Dc Wheeler, DPM [address] [place] [address] Pain in both feet (Primary Dx); Chronic [...] other systems reviewed and are negative. * cD Wheeler DPM - 10/15/2024 9:15 AM EDT [facility] Podiatric Surgery Outpatient Progress Note Dc Wheeler [...] limb documented in this encounter Care Teams Investment Accounting Clerk Relationship Specialty Start Date End Date Virgilio Schmidt MD [address] [place] [id number] PCP - General Family Medicine 07/03/18 documented as of this encounter
[2024-11-26 19:43] LABS: Anion Gap 15.3 mEq/L (5-15); Blood Urea Nitrogen 12 mg/dl (7-17); Calcium 9.7 mg/dl (8.4-10.2); Carbon Dioxide 27 mmol/L (22.0-30.0); Chloride 100 mmol/L (98-107); Creatinine,Serum 0.60 mg/dl (0.52-1.04); Estimated Glomerular Filt Rate 104 ml/min (>60); GFR (African American) 126 ML/MIN (>60); Glucose 97 mg/dl (74-100); Potassium 4.3 mmoL/L (3.5-5.1); Sodium 138 mmol/L (136-145)
--- OUTSIDE RECORDS SUMMARY | 2024-11-27 10:04 | XMS_ITS | Clinical Summary ---
Author Organization [facility] Address [address] [place] [address] Phone Care Team Providers Care Collar Separator Name Role Phone Virgilio Schmidt MD Primary Care Provider [phone] Medications celecoxib (CELEBREX) 200 mg Oral Capsule Take 200 mg by mouth daily. 08/29/19 25 Active EMGALITY PEN 120 mg/mL SubQ Pen Injector Subcutaneous (Inject under the skin) 120 mg every 30 days. 08/15/19 25 Active hydroCHLOROthi azide 12.5 mg Oral Tablet Take 12.5 mg by mouth daily. for blood pressure 08/15/19 25 Active propranoloL (INDERAL) 80 mg Oral Tablet Take 80 mg by mouth 2 times daily. for high blood pressure 08/15/19 25 Active sertraline (ZOLOFT) 100 mg Oral Tablet Take 100 mg by mouth daily. 08/10/19 25 Active SUMAtriptan (IMITREX) 100 mg Oral Tablet Take 100 mg by mouth once as needed. 08/15/19 25 Active methylPREDNISo lone (MEDROL, LUCINA,) 4 mg Oral Tablets, Dose PackIndication s:Pain in both feet Take as directed. 1 Each 08/30/19 25 Active Additional Information Patient not taking.Reason: Therapy Completed, Reported on 10/15/2024 diclofenac (VOLTAREN) 75 mg Oral Tablet, Delayed Release (E.C.)Indicati ons:Pain in both feet Take 1 Tablet by mouth 2 times daily (with meals). 60 Tablet 11/06/19 25 Active diclofenac (VOLTAREN) 75 mg Oral Tablet, Delayed Release (E.C.)Indicati ons:Pain in both feet Take 1 Tablet by mouth 2 times daily (with meals). 60 Tablet 09/25/19 25 025 Discontinued Active Problems No known active problems Encounters Date Type Department Care Team Description 11/04/2024 Telephone [facility] Podiatry [address] [place] [address] Liam, Dc D, DPM Other 10/29/2024 Refill [facility] [address] [address] Liam, Dc D, DPM Medication Refill 10/15/2024 9:15 AM EDT Office Visit [facility] [address] [address] Liam, Dc D, DPM Pain in both feet (Primary Dx); Chronic pain of both ankles; Difficulty walking; Right foot pain 09/24/2024 2:15 PM EDT Office Visit [facility] [address] [address] Liam, Dc D, DPM Pain in both feet (Primary Dx); Chronic pain of both ankles; Difficulty walking 08/29/2024 4:30 PM EDT Ancillary Procedure [address] [address] Liam, Dc D, DPM Pain in both feet; Chronic pain of both ankles; Difficulty walking 08/29/2024 4:25 PM EDT Ancillary Procedure [address] [address] Liam, Dc D, DPM Pain in both feet 08/29/2024 3:30 PM EDT [facility] [address] [facility] [address] [place] [address] Liam, Dc D, DPM Pain in both feet (Primary Dx); Chronic pain of both ankles; Difficulty walking from Last 3 Months Medical History Medical History Date Comments Plantar fasciitis Social History Tobacco Use Types Packs/Day Years [...] on file Sexual Orientation Not on file Obstetrics History Last Filed Vital Signs Vital Sign Reading [...] Mass Index 34.7 10/15/2024 9:15 AM EDT Plan of Treatment Health Maintenance Due Date Last Done Comments Annual Wellness Exam 1973 DTaP/TDaP/Td (1 - Tdap) 1989 Hepatitis B Vaccine (1 of 3 - 19+ 3-dose series) 1989 Cervical Cancer Screening 1991 Pap Smear 1991 HPV/Pap Cotest 01/25/2000 Cologuard 2015 Colon Cancer Screening 2015 Colonoscopy 2015 FIT 2015 Sigmoidoscopy 2015 Virtual Colonography 2015 Pneumococcal Vaccine 50+ (1 of 1 - PCV) 01/25/2020 Zoster (1 of 2) 01/25/2020 Breast Cancer Screening 07/03/2020 07/03/2018 COVID-19 Vaccine ( - 2023-2 5 season) 2024 Influenza Vaccine (#1) 2025 Meningococcal B Vaccine Aged Out No l onger eligible based on patient's age to complete this topic Procedures Procedure Name Priority Date/Time Associated Diagnosis Comments XR FOOT BILATERAL AP LATERAL AND OBLIQUE STANDING Routine 08/29/2024 5:19 PM EDT Pain in both feet XR ANKLE BILATERAL AP LATERAL AND OBLIQUE Routine 08/29/2024 5:19 PM EDT Pain in both feet Chronic pain of both ankles Difficulty walking MM MOBILE DIGITAL MARGO SCREEN BILAT Routine 07/03/2018 2:12 PM EST Screening breast examination from Last 3 Months or Most Recently Relevant to Health Maintenance Results * XR FOOT BILATERAL AP LATERAL AND OBLIQUE STANDING (08/29/2024 5:19 PM EDT) Anatomical Region Laterality Modality Foot Radiographic Yessenia ging Narrative 09/01/2024 5:45 PM EDT Lt. Foot x-ray: No fractures or dislocations Rt. Foot x-ray: No fractures or dislocations. us Dc D Liam DPM IMG DIAGNOSTIC IMAGING ORDERABLE S Final Result * XR ANKLE BILATERAL AP LATERAL AND OBLIQUE (08/29/2024 5:19 PM EDT) Anatomical Region Laterality Modality Ankle Radiographic Yessenia ging Narrative 09/01/2024 5:47 PM EDT Lt. Ankle x-ray: Plantar heel spur. Rt Ankle x-ray: Normal ankle joint alignment. us Dc D Liam DPM IMG DIAGNOSTIC IMAGING ORDERABLE S Final Result * MM MOBILE DIGITAL MARGO SCREEN BILAT (07/03/2018 2:12 PM EST) Anatomical Region Laterality Modality Breast Mammography 07/04/2018 9:13 AM EST Impressions 07/04/2018 9:13 AM EST Negative ([id number]) ~ RECOMMENDATION: Routine screening mammogram in 1 year. ~ DISCLAIMER * Any patient with a palpable abnormality, unexplained by breast imaging, should be managed on clinical basis by the attending physician. * Breast imaging has a false negative rate of 15%. * The patient was notified by mail of the results of this examination. *The patient's information was entered into a reminder system with a target due date for the next mammogram. Narrative 07/04/2018 9:13 AM EST Procedure:MM MOBILE DIGITAL MARGO SCREEN BILAT ~ Reason for exam: screening, asymptomatic. Z12.31-Encounter for screening mammogram for malignant neoplasm of [id number] ~ MM MOBILE DIGITAL MARGO SCREEN BILAT 2D/3D Procedure 3D Bilateral CC and MLO view(s) were taken. 2D Bilateral CC and MLO view(s) were taken. The breast tissue is heterogeneously dense. This may lower the sensitivity of mammography. Prior study comparison: No comparison available. Scattered, benign-appearing nodularity involving both breasts. No mammographic evidence of malignancy. ~ Procedure Note Luh Smith MD - 07/04/2018 Procedure:MM MOBILE DIGITAL MARGO SCREEN BILAT ~ Reason for exam: screening, asymptomatic. Z12.31-Encounter for screening mammogram for malignant neoplasm of [id number] ~ MM MOBILE DIGITAL MARGO SCREEN BILAT 2D/3D Procedure 3D Bilateral CC and MLO view(s) were taken. 2D Bilateral CC and MLO view(s) were taken. The breast tissue is heterogeneously dense. This may lower thesensitivity of mammography. Prior study comparison: No comparison available. Scattered, benign-appearing nodularity involving both breasts. No mammographic evidence of malignancy. ~ IMPRESSION: Negative ([id number]) ~ RECOMMENDATION: Routine screening mammogram in 1 year. ~ DISCLAIMER * Any patient with a palpable abnormality, unexplained by breast imaging, should be managed on clinical basis by the attending physician. * Breast imaging has a false negative rate of 15%. * The patient was notified by mail of the results of this examination. *The patient's information was entered into a reminder system with atarget due date for the next mammogram. Virgilio Schmidt MD IMG MAMMOGRAPHY ORDERABLES F inal Result from Last 3 Months or Most Recently Relevant to Health Maintenance Insurance [address] [place], [place] [address] [place] [address] PPO Member Subscriber Plan / Payer (Ef fective 2022-Present) Name:NathaliaPriscila Relation to Subscriber:Self Name:Priscila Sloan Payer ID:[id number] (NAIC) Type:Not on file Address: [address] [place] [phone] Care Teams Collar Separator Relationship Specialty Start Date End Date Virgilio Schmidt MD [address] [place] [address] PCP - General Family Medicine 07/03/18
--- OUTSIDE RECORDS SUMMARY | 2024-11-27 10:04 | XMS_ITS | Encounter Summary ---
Author Organization [place] [address] Care Team Providers Care Regional Account Manager Name Role Phone Virgilio Schmidt MD Primary Care Provider [phone] Reason for Visit * Reason Onset Date Comments Other 11/04/2024 Encounter Details Date Type Department Care Team (Late st Contact Info) Description 11/04/2024 Telephone [facility] Podiatry [address] [place] [address] Dc Wheeler, TATY [address] [place], [place] [address] [address] Other Social History Tobacco Use Types Packs/Day Years Used Date Smoking Tobacco: Never Smokeless Tobacco: Never Alcohol Use Standard Drinks/Week Comments Not Currently 0 (1 standard drink = 0.6 oz pur e alcohol) Sexually Active Control Partners Comments Not Currently Male Comments No Sex and Gender Information Value Date Recorded Sex Assigned at Not on file Legal Sex Female 1:26 PM EST Gender Identity Not on file Sexual Orientation Not on file documented as of this encounter Miscellaneous Notes * Telephone Encounter - Dc Wheeler DPM - 11/05/2024 6:45 PM EDT Called and spoke with the patient, she is no longer taking Celebrex. I will order her Diclofenac totake. * Telephone Encounter - Daniella Cross CMA - 11/05/2024 11:23 AM EDT patient is asking for a refill on Diclofenac. [facility] [place]. Please advise. She would like a call back to know when its been sent. [phone] * Telephone Encounter - Maria Elena Bolton - 11/04/2024 11:45 AM EDT [phone] Priscila Wheeler patient Patient is returning Dr Wheeler's ohone call. Please call again. documented in this encounter Plan of Treatment Not on file documented as of this encounter Visit Diagnoses Not on filedocumented in this encounter Care Teams Regional Account Manager Relationship Specialty Start Date End Date Virgilio Schmidt MD [address] [place] [address] PCP - General Family Medicine 07/03/18 documented as of this encounter
--- OUTSIDE RECORDS SUMMARY | 2024-11-27 10:04 | XMS_ITS ---
Author Organization Unknown Medications Medication Instructions Effective Dates (start - stop) Status hydrochlorothiazide 12.5 MG Oral Tablet 0318-05-30T14:00:00.000+00 :00 - Completed hydrochlorothiazide 12.5 MG Oral Tablet 4488-98-47O80:00:00.000+00 :00 - Completed hydrochlorothiazide 12.5 MG Oral Tablet 3225-98-34M51:00:00.000+00 :00 - Completed sumatriptan 100 MG Oral Tablet 2 319-65-84E43:00:00.000+00 :00 - Completed hydrochlorothiazide 12.5 MG Oral Tablet 4984-24-36W77:00:00.000+00 :00 - Completed hydrochlorothiazide 12.5 MG Oral Tablet 1141-75-58T46:00:00.000+00 :00 - Completed escitalopram 20 MG Oral Tablet 2 761-87-70O90:00:00.000+00 :00 - Completed escitalopram 20 MG Oral Tablet 2 479-63-52F08:00:00.000+00 :00 - Completed hydrochlorothiazide 12.5 MG Oral Tablet 5583-12-48E68:00:00.000+00 :00 - Completed hydrochlorothiazide 12.5 MG Oral Tablet 7862-70-50K94:00:00.000+00 :00 - Completed 1 ML galcanezumab-gnlm 120 M G/ML Auto-Injector [Emgality] 1434-54-49K20:00:00.000+00 :00 - Completed 1 ML galcanezumab-gnlm 120 M G/ML Auto-Injector [Emgality] 8743-32-52Y04:00:00.000+00 :00 - Completed 1 ML galcanezumab-gnlm 120 M G/ML Auto-Injector [Emgality] 2557-18-85V84:00:00.000+00 :00 - Completed 1 ML galcanezumab-gnlm 120 M G/ML Auto-Injector [Emgality] 2001-57-29P52:00:00.000+00 :00 - Completed 1 ML galcanezumab-gnlm 120 M G/ML Auto-Injector [Emgality] 1719-74-25U14:00:00.000+00 :00 - Completed hydrochlorothiazide 12.5 MG Oral Tablet 5536-52-42O77:00:00.000+00 :00 - Completed 1 ML galcanezumab-gnlm 120 M G/ML Auto-Injector [Emgality] 3283-67-42J83:00:00.000+00 :00 - Completed 1 ML galcanezumab-gnlm 120 M G/ML Auto-Injector [Emgality] 8451-48-04W47:00:00.000+00 :00 - Completed hydrochlorothiazide 12.5 MG Oral Tablet 8343-76-61P16:00:00.000+00 :00 - Completed propranolol hydrochloride 80 MG Oral Tablet 1500-11-91S42:00:00.000+00 :00 - Completed 1 ML galcanezumab-gnlm 120 M G/ML Auto-Injector [Emgality] 4593-30-30Z94:00:00.000+00 :00 - Completed 1 ML galcanezumab-gnlm 120 M G/ML Auto-Injector [Emgality] 2910-21-93S93:00:00.000+00 :00 - Completed hydrochlorothiazide 12.5 MG Oral Tablet 5908-14-66G88:00:00.000+00 :00 - Completed 1 ML galcanezumab-gnlm 120 M G/ML Auto-Injector [Emgality] 6070-50-05H00:00:00.000+00 :00 - Completed 1 ML galcanezumab-gnlm 120 M G/ML Auto-Injector [Emgality] 6569-82-80F89:00:00.000+00 :00 - Completed hydrochlorothiazide 12.5 MG Oral Tablet 0788-28-02J58:00:00.000+00 :00 - Completed hydrochlorothiazide 12.5 MG Oral Tablet 7726-93-74P43:00:00.000+00 :00 - Completed hydrochlorothiazide 12.5 MG Oral Tablet 5349-19-70R25:00:00.000+00 :00 - Completed 1 ML galcanezumab-gnlm 120 M G/ML Auto-Injector [Emgality] 1626-21-75H11:00:00.000+00 :00 - Completed meloxicam 15 MG Oral Tablet 2021:00:00.000+00 :00 - Completed propranolol hydrochloride 80 MG Oral Tablet 5760-01-59T59:00:00.000+00 :00 - Completed escitalopram 20 MG Oral Tablet 2 590-11-33R65:00:00.000+00 :00 - Completed propranolol hydrochloride 80 MG Oral Tablet 7229-25-64P90:00:00.000+00 :00 - Completed propranolol hydrochloride 80 MG Oral Tablet 5339-59-96R69:00:00.000+00 :00 - Completed escitalopram 20 MG Oral Tablet 2 287-26-87F62:00:00.000+00 :00 - Completed meloxicam 15 MG Oral Tablet 2022:00:00.000+00 :00 - Completed escitalopram 20 MG Oral Tablet 411-57-83Y10:00:00.000+00 :00 - Completed propranolol hydrochloride 80 MG Oral Tablet 1157-49-88Q71:00:00.000+00 :00 - Completed escitalopram 20 MG Oral Tablet 2 472-02-00T53:00:00.000+00 :00 - Completed meloxicam 15 MG Oral Tablet 2022:00:00.000+00 :00 - Completed meloxicam 15 MG Oral Tablet 2022:00:00.000+00 :00 - Completed escitalopram 20 MG Oral Tablet 2 940-28-96K52:00:00.000+00 :00 - Completed meloxicam 15 MG Oral Tablet 2021:00:00.000+00 :00 - Completed meloxicam 15 MG Oral Tablet 2022:00:00.000+00 :00 - Completed propranolol hydrochloride 80 MG Oral Tablet 3366-03-82N70:00:00.000+00 :00 - Completed propranolol hydrochloride 80 MG Oral Tablet 9682-85-75U88:00:00.000+00 :00 - Completed escitalopram 20 MG Oral Tablet 2 803-80-59L09:00:00.000+00 :00 - Completed escitalopram 20 MG Oral Tablet 2 739-26-06P30:00:00.000+00 :00 - Completed propranolol hydrochloride 80 MG Oral Tablet 1913-68-69X80:00:00.000+00 :00 - Completed meloxicam 15 MG Oral Tablet 2021:00:00.000+00 :00 - Completed meloxicam 15 MG Oral Tablet 2021:00:00.000+00 :00 - Completed meloxicam 15 MG Oral Tablet 2022:00:00.000+00 :00 - Completed meloxicam 15 MG Oral Tablet 2022:00:00.000+00 :00 - Completed meloxicam 15 MG Oral Tablet 2021:00:00.000+00 :00 - Completed meloxicam 15 MG Oral Tablet 2022:00:00.000+00 :00 - Completed escitalopram 20 MG Oral Tablet 2 923-38-18B54:00:00.000+00 :00 - Completed escitalopram 20 MG Oral Tablet 2 969-14-70W76:00:00.000+00 :00 - Completed sumatriptan 100 MG Oral Tablet 2 392-87-45U17:00:00.000+00 :00 - Completed sumatriptan 100 MG Oral Tablet 2 172-97-65R79:00:00.000+00 :00 - Completed sumatriptan 100 MG Oral Tablet 2 326-93-85D63:00:00.000+00 :00 - Completed escitalopram 20 MG Oral Tablet 2 020-85-12F14:00:00.000+00 :00 - Completed sumatriptan 100 MG Oral Tablet 2 881-71-57A04:00:00.000+00 :00 - Completed sumatriptan 100 MG Oral Tablet 2 555-20-48W25:00:00.000+00 :00 - Completed cefdinir 300 MG Oral Capsule 202 06-24-02:00:00.000+00 :00 - Completed sumatriptan 100 MG Oral Tablet 2 540-67-95O10:00:00.000+00 :00 - Completed sumatriptan 100 MG Oral Tablet 2 040-48-88P18:00:00.000+00 :00 - Completed sumatriptan 100 MG Oral Tablet 2 290-81-23L08:00:00.000+00 :00 - Completed ibuprofen 800 MG Oral Tablet 06-24-17:00:00.000+00 :00 - Completed sumatriptan 100 MG Oral Tablet 2 245-45-06D92:00:00.000+00 :00 - Completed brompheniramine maleate 0.4 MG/ML / dextromethorphan hydrobromide 2 MG/ML / pseudoephedrine hydrochloride 6 MG/ML Oral Solution 4102-72-80O57:00:0 0.000+00 :00 - Completed Patient Care team information Name Category Status Period Participants - - Proposed period not known -
--- OUTSIDE RECORDS SUMMARY | 2024-11-27 10:04 | XMS_ITS | Encounter Summary ---
Author Organization [place] [address] Care Team Providers Care Cuff Maker Name Role Phone Virgilio Schmidt MD Primary Care Provider [phone] Reason for Visit * Reason Comments Medication Refill Encounter Details Date Type Department Care Team (Late st Contact Info) Description 10/29/2024 Refill [facility] [address] [place], [place] [address] Dc Wheeler, DPM [address] [place] [address] Medication Refill Social History Tobacco Use Types Packs/Day Years [...] on file documented as of this encounter Ordered Prescriptions Prescription Sig Dispense Quantity Refills Last Filled Start Date End Date diclofenac (VOLTAREN) 75 mg Oral Tablet, Delayed Release (E.C.)Indications:P ain in both feet Take 1 Tablet by mouth 2 times daily (with meals). 60 Tablet 11/05/2024 documented in this encounter Miscellaneous Notes * Telephone Encounter - Dc Wheeler, DPMicah - 10/31/2024 9:10 AM EDT I call the patient to discuss if she still needs the Diclofenac because she is also taking Celebrex. documented in this encounter Plan of Treatment Not on file documented as of this encounter Visit Diagnoses Diagnosis Pain in both feet Pain in limb documented in this encounter Discontinued Medications Medication Sig Discontinue Reason Start Date End Da te diclofenac (VOLTAREN) 75 mg Oral Tablet, Delayed Release (E.C.)Indications:Pain in both feet Take 1 Tablet by mouth 2 times daily (with meals). 09/24/2024 11/05/2024 documented as of this encounter Care Teams Cuff Maker Relationship Specialty Start Date End Date Virgilio Schmidt MD [address] [place] [id number] PCP - General Family Medicine 07/03/18 documented as of this encounter
== END 2024-11-26 23:59 | disposition home or self-care (01) ==
LOC: LAB.DROPOF 11-27 09:57
PROVIDERS: PCP Family Medicine; Visit Provider Family Medicine
DX: I10 Essential (primary) hypertension (principal)
CPT/HCPCS: 80048

== ENCOUNTER 2024-12-06 12:58 | Outpatient (CLI) | payer BC, SELFPAY ==
--- OUTSIDE RECORDS SUMMARY | 2024-10-15 09:15 | XMS_ITS | Encounter Summary ---
Author Organization [place] [address] Care Team Providers Care Cutter Hot Knife Name Role Phone Virgilio Schmidt MD Primary Care Provider [phone] Reason for Visit * Reason Comments Foot Pain right foot. A lot be tter. Encounter Details Date Type Department Care Team (Late st Contact Info) Description 10/15/2024 9:15 AM EDT Office Visit [facility] [place] [address] [place] [id number] Dc Wheeler, DPM [address] [place] [address] Pain in both feet (Primary Dx); Chronic pain of both ankles; Difficulty walking; Right foot pain Social History Tobacco Use Types Packs/Day Years Used Date Smoking Tobacco: Never Smokeless Tobacco: Never Tobacco Cessation:Counseling Given: Not Answered Alcohol Use Standard Drinks/Week Comments Not Currently 0 (1 standard drink = 0.6 oz pur e alcohol) Sexually Active Control Partners Comments Not Currently Male Comments No Sex and Gender Information Value Date Recorded Sex Assigned at Not on file Legal Sex Female 1:26 PM EST Gender Identity Not on file Sexual Orientation Not on file documented as of this encounter Last Filed Vital Signs Vital Sign Reading Time Taken Comments Blood Pressure - - Pulse - - Temperature 36.3 C (97.4 F) 10/15/2024 9:15 AM EDT Respiratory Rate - - Oxygen Saturation - - Inhaled Oxygen Concentration - - Weight 97.5 kg (215 lb) 10/15/2024 9:15 AM EDT Height 167.6 cm (5' 6 ) 10/15/2024 9:15 AM EDT Body Mass Index 34.7 10/15/2024 9:15 AM EDT documented in this encounter Progress Notes * Priscila Hernandez MA - 10/15/2024 9:15 AM EDT Review of Systems Constitutional: Negative for activity change, chills, fatigue and fever. Eyes: Positive for visual disturbance (wears glasses). Respiratory: Negative for apnea and shortness of breath. Cardiovascular: Negative for chest pain and leg swelling. Gastrointestinal: Negative for nausea and vomiting. Musculoskeletal: Negative for back pain, gait problem and joint swelling. Skin: Negative for rash and wound. Neurological: Negative for dizziness, seizures, weakness, light-headedness, numbness and headaches. Hematological: Does not bruise/bleed easily. Psychiatric/Behavioral: Negative for agitation, behavioral problems and confusion. The patient is not nervous/anxious. All other systems reviewed and are negative. * Dc Wheeler DPM - 10/15/2024 9:15 AM EDT [facility] Podiatric Surgery Outpatient Progress Note Dc Wheeler DPM Name: Priscila Sloan Primary Care Physician: Virgilio Schmidt MD Chief Complaint: Chief Complaint Patient presents with Foot Pain right foot. A lot better. History of Presenting Illness: Priscila Sloan is a 54 y.o. female who is returning to the office with b/l foot and ankle pain. The patient states that the CAM walker and Diclofenac helped reduce her pain by a lot. Medications: Outpatient Medications Marked as Taking for the 10/15/24 encounter (Office Visit) with Dc Wheeler DPM Medication Sig Dispense Refill celecoxib (CELEBREX) 200 mg Oral Capsule Take 200 mg by mouth daily. diclofenac (VOLTAREN) 75 mg Oral Tablet, Delayed Release (E.C.) Take 1 Tablet by mouth 2 times daily (with meals). 60 Tablet 0 EMGALITY PEN 120 mg/mL SubQ Pen Injector Subcutaneous (Inject under the skin) 120 mg every 30 days. hydroCHLOROthiazide 12.5 mg Oral Tablet Take 12.5 mg by mouth daily. for blood pressure propranoloL (INDERAL) 80 mg Oral Tablet Take 80 mg by mouth 2 times daily. for high blood pressure sertraline (ZOLOFT) 100 mg Oral Tablet Take 100 mg by mouth daily. SUMAtriptan (IMITREX) 100 mg Oral Tablet Take 100 mg by mouth once as needed. Not on File Past Medical History: Diagnosis Date Plantar fasciitis History reviewed. No pertinent surgical history. History reviewed. No pertinent family history. Social History: Priscila's social history reviewed: Social History Socioeconomic History Marital status: Spouse name: None Number of children: None Years of education: None Highest education level: None Tobacco Use Smoking status: Never Smokeless tobacco: Never Vaping Use Vaping status: Never Used Substance and Sexual Activity Alcohol use: Not Currently Drug use: Never Sexual activity: Not Currently Partners: Male Review of Systems: The following systems were reviewed and revealed the following in addition to any already discussedin the HPI: Constitutional: Negative for activity change, chills, fatigue and fever. Eyes: Positive for visual disturbance (glasses). Respiratory: Negative for apnea and shortness of breath. Cardiovascular: Positive for leg swelling. Negative for chest pain. Gastrointestinal: Negative for nausea and vomiting. Musculoskeletal: Positive for gait problem. Negative for back pain and joint swelling. Skin: Negative for rash and wound. Neurological: Positive for dizziness and light-headedness. Negative for seizures, weakness, numbness and headaches. Hematological: Bruises/bleeds easily (bleed easily). Psychiatric/Behavioral: Negative for agitation, behavioral problems and confusion. The patient is not nervous/anxious. All other systems reviewed and are negative. Physical Examination: Vital Signs: Temp 97.4 ??F (36.3 ??C) (Forehead) Ht 5' 6 (1.676 m) Wt 215 lb (97.5 kg) BMI 34.70 kg/m?? General: Priscila appears in no acute distress Skin: warm, dry, and intact Head: Normocephalic, without obvious abnormality, atraumatic Lungs: Breathing unlabored Neurological: sensation grossly normal. LE exam separate. Extremities/Musculoskeletal: See Focused Exam LOWER EXTREMITY FOCUSED EXAM: Lower Extremity Exam: Vascular Exam: Pedal pulses palpable for dorsalis pedis and posterior tibial arteries bilaterally. Capillary refill time < 3 seconds to digits 1-5 bilaterally. Neuro Exam: Sensation intact to light touch. No Tinel's or Vallieux's Signs. Deep tendon reflexes intact bilaterally. Proprioception intact bilaterally Musc Exam: Mild pain and tenderness along the heels b/l. Mild pain on ROM at the ankle joints b/l. Derm Exam: Skin texture and turgor are within normal limits. Assessment: Priscila Sloan was seen today for Chief Complaint Patient presents with Foot Pain right foot. A lot better. Priscila was seen today for foot pain. Diagnoses and all orders for this visit: Pain in both feet Chronic pain of both ankles Difficulty walking Right foot pain Plan: 1. The patient was evaluated and treated today. 2. She has less pain in her feet, especially her right foot. Can take Diclofenac as needed. 3. She can transition out of the CAM walker and wear inserts and good supportive shoes. 4. Continue to ice both feet. 5. RTO as needed. Dc Wheeler DPM 10/15/2024 documented in this encounter Plan of Treatment Not on file documented as of this encounter Visit Diagnoses Diagnosis Pain in both feet- Primary Pain in limb Chronic pain of both ankles Difficulty walking Difficulty in walking Right foot pain Pain in limb documented in this encounter Care Teams Cutter Hot Knife Relationship Specialty Start Date End Date Virgilio Schmidt MD [address] [place] [id number] PCP - General Family Medicine 07/03/18 documented as of this encounter
--- OUTSIDE RECORDS SUMMARY | 2024-12-06 13:00 | XMS_ITS | Encounter Summary ---
Author Organization [place] [address] Care Team Providers Care Pupil Personnel Services Director Name Role Phone Virgilio Schmidt MD Primary Care Provider [phone] Reason for Visit * Reason Comments Medication Refill Encounter Details Date Type Department Care Team (Late st Contact Info) Description 10/29/2024 Refill [facility] [address] [place], [place] [address] Dc Wheeler, DPM [address] [place] [address] Medication Refill Social History Tobacco Use Types [...] documented as of this encounter Care Teams Pupil Personnel Services Director Relationship Specialty Start Date End Date Virgilio Schmidt MD [address] [place] [id number] PCP - General Family Medicine 07/03/18 documented as of this encounter
--- OUTSIDE RECORDS SUMMARY | 2024-12-06 13:00 | XMS_ITS | Encounter Summary ---
Author Organization [facility] [place] [address] Care Team Providers Care Field Collector Name Role Phone Virgilio Schmidt MD Primary Care Provider [phone] Reason for Visit * Reason Onset Date Comments Other 11/04/2024 Encounter Details Date Type Department Care Team (Late st Contact Info) Description 11/04/2024 Telephone [facility]ry [address] [place] [address] Dc Wheeler, TATY [address] [place], [place] [address] [address] Other Social History Tobacco Use Types Packs/Day [...] Diclofenac. she [facility] [place]. Please advise. She would like a call back to know when its been sent. [phone] * Telephone Encounter - Maria Elena Bolton - 11/04/2024 11:45 AM EDT [phone] Priscila Wheeler patient Patient is returning Dr Wheeler's ohone call. Please call again. documented in this encounter Plan of Treatment Not on file documented as of this encounter Visit Diagnoses Not on filedocumented in this encounter Care Teams Field Collector Relationship Specialty Start Date End Date Virgilio Schmidt MD [address] [place] [phone] PCP - General Family Medicine 07/03/18 documented as of this encounter
--- OUTSIDE RECORDS SUMMARY | 2024-12-06 13:00 | XMS_ITS | Clinical Summary ---
Author Organization [facility] Address [address] [place] [address] Phone Care Team Providers Care Manager Electronic Name Role Phone Virgilio Schmidt MD Primary Care Provider [phone] Medications celecoxib (CELEBREX) 200 mg Oral Capsule Take 200 mg by mouth daily. 5 Active EMGALITY PEN 120 mg/mL SubQ Pen Injector Subcutaneous (Inject under the skin) 120 mg every 30 days. 5 Active hydroCHLOROthia zide 12.5 mg Oral Tablet Take 12.5 mg by mouth daily. for blood pressure 5 Active propranoloL (INDERAL) 80 mg Oral Tablet Take 80 mg by mouth 2 times daily. for high blood pressure 5 Active sertraline (ZOLOFT) 100 mg Oral Tablet Take 100 mg by mouth daily. 5 Active SUMAtriptan (IMITREX) 100 mg Oral Tablet Take 100 mg by mouth once as needed. 5 Active methylPREDNISol one (MEDROL, LUCINA,) 4 mg Oral Tablets, Dose PackIndications :Pain in both feet Take as directed. 1 Each 5 Active Additional Information Patient not taking.Reason: Therapy Completed, Reported on 10/15/2024 diclofenac (VOLTAREN) 75 mg Oral Tablet, Delayed Release (E.C.)Indicatio ns:Pain in both feet Take 1 Tablet by mouth 2 times daily (with meals). 60 Tablet 5 Active Active Problems No known active problems Encounters Date Type Department Care Team Description 11/04/2024 [place] [facility] [place] [address] [place] [address] Dc Wheeler, DPM Other 10/29/2024 [place] [facility] [address] [facility] [address] [place] [address] Dc Wheeler, DPM Medication Refill 10/15/2024 9:15 AM EDT [facility] [address] [place] [address] Dc Wheeler, DPM Pain in both feet (Primary Dx); Chronic pain of both ankles; Difficulty walking; Right foot pain 09/24/2024 2:15 PM EDT [facility] [address] [address] Dc Wheeler, DPM Pain in both feet (Primary Dx); [...] Breast Cancer Screening 07/03/2020 07/03/2018 COVID-19 Vaccine (1 - 2023-2 5 season) 2024 Influenza Vaccine (#1) 2025 Meningococcal B Vaccine Aged Out No l onger eligible based on patient's age to complete this topic Procedures Procedure Name Priority Date/Time Associated Diagnosis Comments MM MOBILE DIGITAL MARGO SCREEN BILAT Routine 07/03/2018 2:12 PM EST Screening breast examination from Last 3 Months or Most Recently Relevant to Health Maintenance Results * MM MOBILE DIGITAL MARGO SCREEN BILAT (07/03/2018 2:12 PM EST) Anatomical Region Laterality Modality Breast Mammography 07/04/2018 9:13 AM EST Impressions 07/04/2018 9:13 AM EST Negative ([id number]) ~ RECOMMENDATION: Routine screening mammogram in 1 [...] for screening mammogram for malignant neoplasm of [id number] ~ MM MOBILE DIGITAL MARGO SCREEN BILAT [...] for screening mammogram for malignant neoplasm of [id number] ~ MM MOBILE DIGITAL MARGO SCREEN BILAT 2D/3D Procedure 3D Bilateral CC and MLO view(s) were taken. 2D Bilateral CC and MLO view(s) were taken. The breast tissue is heterogeneously dense. This may lower thesensitivity of mammography. Prior study comparison: No comparison available. Scattered, benign-appearing nodularity involving both breasts. No mammographic evidence of malignancy. ~ IMPRESSION: Negative ([id number]) ~ RECOMMENDATION: Routine screening mammogram in 1 [...] Most Recently Relevant to Health Maintenance Insurance [employer] PPO Care Teams Manager Electronic Relationship Specialty Start Date End Date Virgilio Schmidt MD [address] [place] [address] PCP - General Family Medicine 07/03/18
--- NOTE | 2024-12-06 13:50 | MM_ITS ---
PROCEDURE INFORMATION: Exam: MG Bilateral Screening 3D Mammography Exam date and time: 12/06/2024 1:50 PM Age: 54 years old Clinical indication: Screening examination; . Family history of breast carcinoma. TECHNIQUE: Imaging protocol: Bilateral Screening tomosynthesis and 2D mammography including computer-aided detection (CAD) when performed. COMPARISON: 1. MG MM DIG SCREENING MAMM BI W/CAD 11/30/2023 10:33 AM 2. MG MM DIG SCREENING MAMM BI W/CAD 12/06/2022 9:58 AM 3. MG MM DIG MAMM DX UNILAT RT CAD 06/07/2022 1:55 PM 4. MG MM DIG MAMM DX UNILAT RT CAD 12/01/2021 1:16 PM 5. MG MM DIG SCREENING MAMM BI W/CAD 11/16/2021 3:01 PM FINDINGS: MAMMOGRAPHY: Breast composition: There are scattered areas of fibroglandular density. Mass: No suspicious masses. Architectural distortion: No suspicious distortion. Calcifications: No suspicious calcifications. Asymmetric density: None. Skin thickening: None. Axillary adenopathy: None. IMPRESSION: 1. No mammographic evidence of malignancy. Annual screening is recommended unless otherwise clinically indicated. 2. Given the reported risk factors for this patient, a breast cancer risk assessment may prove useful for further evaluation. ASSESSMENT: BI-RADS Category 1: Negative.
== END 2024-12-06 23:59 | disposition home or self-care (01) ==
LOC: RAD 12:58
PROVIDERS: PCP Family Medicine; Visit Provider Family Medicine
DX: Z12.31 Encounter for screening mammogram for malignant neoplasm of breast (principal); R92.323 Mammographic fibroglandular density, bilateral breasts; Z80.3 Family history of malignant neoplasm of breast
CPT/HCPCS: 77063; 77067